=== PATIENT | male | born 1950 | race Caucasian/White ===

== ENCOUNTER 2021-10-11 17:01 | Inpatient (IN) | payer MEDICARE, OTHER ==
[~2021-10-11] VITALS: Ht 172.7 cm; Wt 82.6 kg
[2021-10-11] MEDS ORDERED: BUPROPION XL150 M1 PO (17:26)
[2021-10-11] MEDS ORDERED: NEURONTIN300 MG PO (17:26)
[2021-10-11] MEDS ORDERED: ATORVASTATIN TAB 10M (17:26)
[2021-10-11] MEDS ORDERED: LISINOPRIL-HCT1 EAC1 PO (17:26)
[2021-10-11 17:29] LABS: BASOPHILS ABSOLUTE AUTO 0.03 K/mm3 (0.00-0.23); BASOPHILS PERCENT AUTO 0 % (0-2); EOSINOPHILS PERCENT AUTO 0 % (0-6); Hematocrit 46.7 % (37.0-53.0); IMMATURE GRAN ABSOLUTE AUTO 0.09 K/mm3 (0.00-0.10); IMMATURE GRAN PERCENT AUTO 0 % (0-1); LYMPHOCYTES PERCENT AUTO 3 % (21-46); MONOCYTES ABSOLUTE AUTO 1.49 K/mm3 (0.16-1.47); MONOCYTES PERCENT AUTO 7 % (4-13); Mean Corpuscular HGB Conc 34.3 g/dL (31.5-36.5); Mean Corpuscular Volume 96 fL (80-100); Mean Platelet Volume 10.8 fL (9.1-12.4); NEUTROPHILS ABSOLUTE AUTO 17.92 K/mm3 (1.96-9.15); NEUTROPHILS PERCENT AUTO 89 % (41-73); Platelet Count 174 K/mm3 (150-400); RDW Coefficient Variation 11.4 % (11.7-14.2); RDW Standard Deviation 40.3 fL (35.1-46.3); Red Blood Cell Count 4.85 M/mm3 (4.30-5.90); White Blood Cell Count 20.13 K/mm3 (4.00-11.30)
[2021-10-11 17:32] LABS: Source, Urine Clean Catch
[2021-10-11 17:39] LABS: Bilirubin, Urine Neg (Neg); Blood, Urine 3+ (Neg); Glucose Qualitative, Urine Neg (Neg); Ketones, Urine 2+ (Neg); Leukocyte Esterase, Urine Neg (Neg); Nitrite, Urine Neg (Neg); Protein, Urine 2+ (Neg); Urobilinogen, Urine 1+ (Normal)
[2021-10-11 17:50] LABS: Appearance, Urine Hazy (Clear); Color, Urine Amber (P-Yellow)
[2021-10-11 17:51] LABS: Bacteria Few /hpf; Mucus Heavy (0-Heavy); Squamous Epithelial Cells Rare /hpf (Few); White Blood Cells, Urine 0-2 /hpf (0-5)
[2021-10-11 17:55] LABS: Alanine Aminotransfer (ALT/SGP 25 U/L (12-78); Albumin, Blood 3.6 g/dL (3.4-5.0); Albumin/Globulin Ratio 0.9 (0.8-1.8); Alk Phos 73 U/L (50-136); Anion Gap 5 mmol/L (6-16); Aspartate Aminotrans (AST/SGOT 18 U/L (12-37); Bilirubin, Total 0.9 mg/dL (0.1-1.0); Blood Urea Nitrogen 19 mg/dL (8-24); Bun/Creatinine Ratio 19.5 (12.0-20.0); CO2, Blood 28 mmol/L (21-32); Calcium, Blood 9.4 mg/dL (8.5-10.1); Chloride, Blood 101 mmol/L (98-108); Creatinine, Blood 0.98 mg/dL (0.60-1.20); Glomerular Filtration Rate >60 (60-); Glucose, Blood 120 mg/dL (70-99); Sodium, Blood 134 mmol/L (136-145); Total Protein, Blood 7.6 g/dL (6.4-8.2)
[2021-10-11 20:24] LABS: International Normalized Ratio 1.16; Prothrombin Time Results 12.1 Sec (9.7-11.5)
--- NOTE | 2021-10-12 03:49 | NUR ---
SHIFT SUMMARY A/O X4. VITAL SIGNS STABLE. PT REPORTS NO PAIN THROUGHOUT SHIFT UNLESS PALPATING ABDOMEN. PT VOIDING WELL AND WALKING TO BATHROOM INDEPENDENTLY. PT HAS BEEN NPO SINCE MIDNIGHT. WILL CONTINUE TO MONITOR AND REPORT TO ONCOMING RN.
[2021-10-12 09:26] LABS: Influenza A, PCR NEGATIVE (NEGATIVE); Influenza B, PCR NEGATIVE (NEGATIVE); Resp Syncytial Virus, PCR NEGATIVE (NEGATIVE); SARS-Cov-2 (COVID-19) PCR, MMC NEGATIVE (NEGATIVE)
--- NOTE | 2021-10-12 11:26 | NUR ---
10/12/21 1125 Maged Allen PATIENT ON SCHEDULED ANTIBIOTICS
--- NOTE | 2021-10-12 12:50 | NUR ---
RECEIVED REPORT FROM
--- NOTE | 2021-10-12 17:03 | NUR ---
SHIFT SUMMARY PT AOX4; STANDBY. PT HAD AN APPENDECTOMY THIS AFTERNOON. VSS. PT NOT COMPLAINING OF PAIN AND STATED NOT NEEDING PAIN MEDICATION AT TIME. PT IS STAYING THE NIGHT, BECAUSE HIS BROTHER STATED THAT THE PT LIVES ALONE. NO OTHER CONCERN AT THIS TIME. BED IS IN THE LOWEST POSITION AND CALL LIGHT WITHIN REACH
--- NOTE | 2021-10-13 04:50 | NUR ---
SHIFT SUMMARY NO ACUTE CHANGES TO REPORT THIS SHIFT. POST OP DAY 1. PT PAIN HAS BEEN MINIMAL, AND ONLY INCREASES WITH EXERTION AND AMBULATION. PT MEDICATED X1. LAP SITE WNL. PT TOLERATING DIET. VOIDING WITHOUT DIFFICULTY. PLAN IS FOR DISCHARGE TODAY. BED IN LOWEST POSITION, CALL LIGHT WITHIN REACH.
[2021-10-13] MEDS ORDERED: OXYC10TA19 PO (11:34)
[2021-10-13] MEDS ORDERED: AMOCLA875 PO (11:35)
--- NOTE | 2021-10-13 12:59 | NUR ---
DISCHARGE SUMMARY PATIENT ALERT AND ORIENTED. TOLERATING REGULAR DIET AND FLUIDS. INDEPENDENT IN HALLS AND TO BATHROOM. VOIDING WELL. MINIMAL PAIN. CHANGED DRESSINGS TO ABD SITES THIS AM. DISCHARGE ORDER OBTAINED. DISCHARGE EDUCATION GIVEN ON WOUND CARE, ACTIVITY, NEW RXS, AND FOLLOW APPTS. PATIENT LEFT UNIT AT 1230 VIA WHEELCHAIR FOR HOME.
== END 2021-10-13 12:33 | disposition home or self-care (01) | DRG 340 ==
LOC: ER 17:01 → SURS 19:28
PROVIDERS: Emergency Medicine; Student in an Organized Health Care Education/Training Program; ADMIT Surgery
PROC: 0DTJ0ZZ Resection of Appendix, Open Approach (ICD-10-PCS; principal; 2021-10-12 10:00)
PROC: 0WJG4ZZ Inspection of Peritoneal Cavity, Percutaneous Endoscopic Approach (ICD-10-PCS; 2021-10-12 10:00)
DX: K35.33 Acute appendicitis with perforation, localized peritonitis, and gangrene, with abscess (principal); Z20.822 Contact with and (suspected) exposure to COVID-19; K38.1 Appendicular concretions; I10 Essential (primary) hypertension; E78.5 Hyperlipidemia, unspecified; Z79.899 Other long term (current) drug therapy; Z53.31 Laparoscopic surgical procedure converted to open procedure
CPT/HCPCS: 0241U; 36415; 74177; 80053; 81001; 83605; 83690; 85025; 85610; 86850; 86900; 86901; 88304; 93005; 93010; 96365; 99285-25; A9270; J0295; J1100; J1885; J2405; J2543; J2704; J3010; J7030; J7050; J7120; Q9967

== ENCOUNTER 2025-06-01 12:24 | Day surgery (SDC) | payer MEDICARE, OTHER ==
[~2025-06-01] VITALS: Ht 170.2 cm; Wt 81.3 kg
[~2025-06-01 12:24] MED LIST: AMOCLA875 PO; ATORVASTATIN TAB 10M; BUPROPION XL150 M1 PO; Balanced Salt Epinephrine Irrigation Solution 500 mL IR SCH; LISINOPRIL-HCT1 EAC1 PO; Moxifloxacin HCL 0.5 MG/0.1 ML 0.4MLSYR RIGHTEYE SCH; NEURONTIN300 MG PO; NS 500 ML IV ONE; OXYC10TA19 PO; PHENYLEPHRINE\\TROPICAMIDE\\TETRACAINE OPHTHALMIC DILATING SOLN RIGHTEYE PRN; Povidone-Iodine 450 DROP/30 ML Solution ONE; Povidone-Iodine 450 DROP/30 ML Solution RIGHTEYE SCH; Tetracaine HCl/Pf 0.5% Opth Soln 4 ml ONE; Triamcinolone Inj Susp 40 MG / ML 1ML Vial INJ SCH; Triamcinolone Inj Susp 40 MG / ML 1ML Vial ONE
[2025-06-01] MEDS ORDERED: NS 500 ML IV ONE (13:07)
[2025-06-01] MEDS ORDERED: ASPI81CH PO (13:22)
[2025-06-01] MEDS ORDERED: FentaNYL Citrate 50 MCG/ML 2 ML Injection ONE (13:49)
[2025-06-01] MEDS ORDERED: Midazolam HCl 1MG / ML 2ML Vial ONE (13:49)
[2025-06-01 14:29] VITALS: BP 114/61
== END 2025-06-01 14:50 | disposition home or self-care (01) ==
LOC: ORSCSDS 12:24
PROVIDERS: Ophthalmology
PROC: 08RJ3JZ Replacement of Right Lens with Synthetic Substitute, Percutaneous Approach (ICD-10-PCS; principal; 2025-06-01 14:30)
DX: H25.811 Combined forms of age-related cataract, right eye (principal); G47.33 Obstructive sleep apnea (adult) (pediatric)
CPT/HCPCS: J2003; J2250; J3010; J3301; J7040; V2632

== ENCOUNTER 2025-06-15 09:22 | Day surgery (SDC) | payer MEDICARE, OTHER ==
[~2025-06-15] VITALS: Ht 170.2 cm; Wt 81.5 kg
[~2025-06-15 09:22] MED LIST changes: +ASPI81CH PO; +Moxifloxacin HCL 0.5 MG/0.1 ML 0.4MLSYR LEFTEYE SCH; -Moxifloxacin HCL 0.5 MG/0.1 ML 0.4MLSYR RIGHTEYE SCH; +PHENYLEPHRINE\\TROPICAMIDE\\TETRACAINE OPHTHALMIC DILATING SOLN LEFTEYE PRN; -PHENYLEPHRINE\\TROPICAMIDE\\TETRACAINE OPHTHALMIC DILATING SOLN RIGHTEYE PRN; +Povidone-Iodine 450 DROP/30 ML Solution LEFTEYE SCH; -Povidone-Iodine 450 DROP/30 ML Solution RIGHTEYE SCH
[2025-06-15] MEDS ORDERED: TAMS.4ER PO (10:07)
[2025-06-15] MEDS ORDERED: Midazolam HCl 1MG / ML 2ML Vial ONE (10:34)
[2025-06-15] MEDS ORDERED: FentaNYL Citrate 50 MCG/ML 2 ML Injection ONE (10:34)
[2025-06-15] MEDS ORDERED: NS 500 ML IV ONE (10:42)
[2025-06-15 10:54] VITALS: BP 108/59
== END 2025-06-15 11:16 | disposition home or self-care (01) ==
LOC: ORSCSDS 09:22
PROVIDERS: Ophthalmology
PROC: 08RK3JZ Replacement of Left Lens with Synthetic Substitute, Percutaneous Approach (ICD-10-PCS; principal; 2025-06-15 11:00)
DX: H25.812 Combined forms of age-related cataract, left eye (principal); Z96.1 Presence of intraocular lens; G47.33 Obstructive sleep apnea (adult) (pediatric); Z79.82 Long term (current) use of aspirin; Z79.899 Other long term (current) drug therapy
CPT/HCPCS: J2250; J3010; J3301; J7040; V2632